=== PATIENT | male | born 1990 | race Caucasian/White ===

== ENCOUNTER → 2019-03-22 | Outpatient (CLI) | payer SELFPAY ==
[2013-07-11 22:35] VITALS: BP 120/58
[~2019-03-22] MED LIST: ADVAIR IH; PERCOCET 325 MG1 TA2 PO; PHENERGAN 25 TA25 MG PO
== END ==
LOC: RAD 12:25
DX: S69.92XA Unspecified injury of left wrist, hand and finger(s), initial encounter (principal)

== ENCOUNTER → 2021-05-18 | Outpatient (CLI) | payer OTHER | LOC: LAB 12:12 | DX: Z20.822 Contact with and (suspected) exposure to COVID-19 (principal) ==

== ENCOUNTER 2022-04-20 11:08 | Outpatient (RCR) | payer OTHER | END 2022-05-16 | disposition still patient (30) | LOC: PT | DX: M25.511 Pain in right shoulder (principal) ==

== ENCOUNTER 2022-05-17 13:00 | Outpatient (RCR) | payer OTHER | END 2022-06-15 | disposition still patient (30) | LOC: PT | DX: S49.91XD Unspecified injury of right shoulder and upper arm, subsequent encounter (principal); X58.XXXD Exposure to other specified factors, subsequent encounter ==

== ENCOUNTER 2022-07-19 08:00 | Outpatient (RCR) | payer OTHER | END 2022-08-16 14:45 | disposition home or self-care (01) | LOC: PT 08:00 | DX: S49.91XD Unspecified injury of right shoulder and upper arm, subsequent encounter (principal); X58.XXXD Exposure to other specified factors, subsequent encounter ==

== ENCOUNTER 2023-11-19 08:44 | Emergency (ER) | payer OTHER ==
[~2023-11-19] VITALS: Ht 172.7 cm; Wt 113.6 kg
[~2023-11-19 08:44] MED LIST changes: +MORGIDOX 1X100100 MG PO; +VENLAFAXINE HYD75 MG PO
[2023-11-19 09:40] LABS: BASO # 0.03 K/mm3 (0.02-0.10); EOS # 0.14 K/mm3 (0.04-0.40); EOS % 1.6 % (0.0-4.0); HEMATOCRIT 46.4 % (42.0-52.0); HEMOGLOBIN 15.5 g/dL (13.5-18.0); LYMPH# 2.13 K/mm3 (1.50-4.00); MEAN CELL VOLUME 84 fl (78-100); MEAN CORPUSCULAR HEMOGLOBIN 28 pg (27-31); MEAN CORPUSCULAR HGB CONC 33 g/dL (33-37); MEAN PLATELET VOLUME 8.3 fl (7.4-10.4); MONO # 0.68 K/mm3 (0.20-0.80); NEU # 5.54 K/mm3 (1.40-6.50); PLATELET COUNT 310 K/mm3 (130-400); RED BLOOD COUNT 5.55 M/mm3 (4.20-5.60); RED CELL DISTRIBUTION WIDTH 11.8 % (11.5-14.5); WHITE BLOOD COUNT 8.7 K/mm3 (4.8-10.8)
[2023-11-19 09:44] LABS: ALBUMIN 4.3 g/dL (3.5-5.0)
[2023-11-19 09:45] LABS: CALCIUM 9.7 mg/dL (8.3-10.5)
[2023-11-19] MEDS ORDERED: Ketorolac 30 MG/ML VIAL IV ONE (09:45)
[2023-11-19] MEDS ORDERED: Ondansetron 4 MG/2 ML VIAL IV ONE (09:45)
[2023-11-19 09:46] LABS: TOTAL PROTEIN 7.5 g/dL (6.4-8.3)
[2023-11-19 09:48] LABS: TOTAL BILIRUBIN 0.3 mg/dL (0.2-1.2)
[2023-11-19] MEDS ORDERED: ZOFRAN ODT4 MG PO (10:41)
[2023-11-19 11:38] VITALS: BP 120/78
== END 2023-11-19 11:00 | disposition home or self-care (01) ==
LOC: ED 08:44
PROVIDERS: Physician Assistant
DX: J01.90 Acute sinusitis, unspecified (principal); H66.93 Otitis media, unspecified, bilateral
CPT/HCPCS: J1885; J2405